=== PATIENT | female | born 1945 | race Caucasian/White ===

== ENCOUNTER 2021-04-07 18:41 | Emergency (ER) | payer MEDICAID, MEDICARE, OTHER ==
[~2021-04-07] VITALS: Ht 162.6 cm; Wt 69.5 kg
[2021-04-07 18:43] VITALS: BP 181/87
--- NOTE | 2021-04-07 19:25 | NUR ---
Dr Gracia at bedside now for interview/evaluation.
[2021-04-07] MEDS ORDERED: ONDANSETRON 2MG/ML, 2ML ONE (19:29)
[2021-04-07] MEDS ORDERED: LORazepam 2 MG/ML, 1ML ONE (19:29)
[2021-04-07] MEDS ORDERED: SODIUM CHLORIDE 0.9% 1,000ML IVBOLUS ONE (19:30)
[2021-04-07] MEDS ORDERED: LORazepam 2 MG/ML, 1ML IVPush ONE (19:30)
[2021-04-07] MEDS ORDERED: ONDANSETRON 2MG/ML, 2ML IVPush ONE (19:30)
[2021-04-07 19:58] LABS: MEAN CORPUSCULAR HEMOGLOBIN 28.3 pg (27.0-34.8); MEAN CORPUSCULAR HGB CONC 34.8 g/dL (32.4-35.8); MEAN PLATELET VOLUME 8.2 fL (7.4-10.4); PLATELET COUNT 296 x10^3/uL (130-400); RED BLOOD COUNT 5.05 x10^6/uL (3.82-5.3); RED CELL DISTRIBUTION WIDTH 14.6 % (9.6-15.2)
[2021-04-07 20:06] LABS: ALBUMIN 3.9 g/dL (3.4-5.0); ANION GAP 10 mmol/L (5-15); CALCIUM 9.1 mg/dL (8.5-10.1); CHLORIDE 104 mmol/L (98-107); CREATININE 1.55 mg/dL (0.55-1.02)
[2021-04-07 20:22] LABS: <PLATELET ESTIMATE> ADEQUATE; <PLT MORPHOLOGY> NORMAL PLT MORPH; ANISOCYTOSIS 1+; BAND#(MANUAL) 0.04 x10^3/uL; BANDS%(MANUAL) 1 % (0-7); BASOS#(MANUAL) 0.04 x10^3/uL (0-0.1); BASOS% (MANUAL) 1 % (0-1); LYMPH#(MANUAL) 1.38 x10^3/uL (1-3.4); LYMPHS% (MANUAL) 32 % (22-44); METAMYELOCYTES# (MANUAL) 0.04 x10^3/uL (0-0); METAMYELOCYTES% (MANUAL) 1 % (0-1); MICROCYTOSIS 1+; MONOS#(MANUAL) 0.47 x10^3/uL (0.3-2.7); MONOS% (MANUAL) 11 % (2-9); SEG#(MANUAL) 2.32 x10^3/uL (1.8-6.8); SEGS% (MANUAL) 54 % (42-75)
--- NOTE | 2021-04-07 20:33 | NUR ---
Pt in MRI, VSS, side rails up.
--- NOTE | 2021-04-07 20:38 | NUR ---
Back from MRI, IVF infusing, call lovett in reach. VSS.
--- NOTE | 2021-04-07 20:45 | NUR ---
Pt states feels better, IVF infused. VSS. AIDET provided.
== END 2021-04-07 21:43 | disposition home or self-care (01) ==
LOC: ED 19:11
DX: H81.13 Benign paroxysmal vertigo, bilateral (principal); E86.0 Dehydration; R94.31 Abnormal electrocardiogram [ECG] [EKG]; I11.9 Hypertensive heart disease without heart failure; E11.9 Type 2 diabetes mellitus without complications; Z86.73 Personal history of transient ischemic attack (TIA), and cerebral infarction without residual deficits
CPT/HCPCS: 36415; 70551; 80048; 82040; 85025; 93005; 96361; 96374; 96375; 99284; J2060; J2405; J7030